=== PATIENT | female | born 1980 | race African-American/Black ===

== ENCOUNTER 2016-12-07 07:39 | Emergency (ER) | payer MEDICARE ==
[~2016-12-07] VITALS: Ht 172.7 cm; Wt 127.6 kg
[~2016-12-07 07:39] MED LIST: ABAC1TAB3 PO; MEDR4PAK3 PO; TYLE3 PO; ZITH250T PO
[2016-12-07 07:56] VITALS: BP 135/93; PULSE 82; RESP 18; TEMP 98.3; O2SAT 96
[2016-12-07] MEDS ORDERED: ABAC1TAB3 PO (08:25)
[2016-12-07] MEDS ORDERED: LEVA500T PO (08:27)
--- NOTE | 2016-12-07 08:27 | PD ---
HPI . Sinus congestion Chief Complaint: Cold / Flu Symptoms Time Seen by Provider: 08:13 Travel History International Travel<30 days: No Contact w/Intl Traveler<30days: No History of Present Illness HPI Patient presents with about a 3 day history of sinus congestion. She has been treating it at home with Demetra and Michaelle. The complicating factor with this patient is that she is HIV positive. She denies any known fever. Her sinus drainage has been purulent. 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 Dvce: No Musculoskeletal: Yes Neurologic: Yes Psychiatric: Yes Respiratory: Yes (occ bronchitis) Immunizations Current: Yes PNEUMOCCOCAL Vaccine (Year): 2010 Menopausal: No : 2 Para: 2 Past Surgical History Abdominal Surgery: Yes (BIOPSY OF LYMPH NODES- PEG TUBE PLACEMENT) Section: Yes (X 2) Cholecystectomy: No Gynecologic Surgery: Yes ((2) C-Sections) Other Surgery: Yes (lymph nodes biopsy in abd) Social History Alcohol Use: No Tobacco Use: No Substance Use: No Allergies-Medications (Allergen,Severity, Reaction): Coded Allergies: Albuterol (Verified Allergy, Severe, 06/24/15) Bactrim (Verified Allergy, Severe, Shortness of Breath, 06/24/15) Reported Meds & Prescriptions Reported Meds & Active Scripts Active Medrol Dosepak (Methylprednisolone) 4 Mg Shawn 4 Mg PO DIRECTED TAKE DIRECTED Tylenol #3 (Acetaminophen/Codeine Phosphate) Acetaminophen 300/30 Codeine Tab 1 Tab PO Q6H PRN FOR PAIN Zithromax Z-Shawn (Azithromycin) 250 Mg Tab 250 Mg PO DIRECTED 500 MG (2 TABLETS) PO ON DAY 1, THEN 250 MG (1 TABLET) PO ON DAYS 2 TO 5. Reported Triumeq 600-50-300 mg (Dbckqyrv-Shjpmmelkzws-Jjoocgbn) 1 Tab Tab 1 Tab PO DAILY Review of Systems Except as stated in HPI: all other systems reviewed are Neg General / Constitutional: No: Fever, Chills HENT: Positive: Rhinitis, Rhinorrhea, Congestion, Other (purulent sinus drainage) Physical Exam Narrative GENERAL: Healthy-appearing woman in no acute distress. SKIN: Warm and dry. HEAD: Atraumatic. Normocephalic. Tenderness to percussion over the maxillary sinuses. EYES: Pupils equal and round. ENT: No nasal bleeding or discharge. Mucous membranes pink and moist. No edema or erythema of the nasal mucosa. Oropharynx is clear. NECK: Trachea midline. Neck is supple without cervical lymphadenopathy. CARDIOVASCULAR: Regular rate and rhythm. Heart sounds are normal. RESPIRATORY: No accessory muscle use. Lungs are clear with full air movement throughout. GASTROINTESTINAL: Abdomen soft, non-tender, nondistended. MUSCULOSKELETAL: No obvious deformities. No edema. NEUROLOGICAL: Awake and alert. No obvious cranial nerve deficits. Motor grossly within normal limits. Normal speech. PSYCHIATRIC: Appropriate mood and affect; insight and judgment normal. Data Data Last Documented VS Vital Signs Date Time Temp Pulse Resp B/P Pulse Ox O2 Delivery O2 Flow Rate FiO2 12/07/16 07:56 98.3 82 18 135/93 96 Room Air MDM Medical Decision Making Medical Screen Exam Complete: Yes Emergency Medical Condition: Yes Differential Diagnosis Differential diagnosis includes but is not limited to influenza, upper respiratory infection, bronchitis, pneumonia Narrative Course Patient presents with symptoms compatible with sinusitis. Because of her history of HIV/AIDS, I queried UpToDate which recommends treatment with an antibiotic to cover pseudomonas. Diagnosis Primary Impression: Sinusitis Qualified Code: J01.01 - Acute recurrent maxillary sinusitis Additional Impression: HIV (human immunodeficiency virus infection) Patient Instructions: General Instructions, Sinusitis (ED) Additional Instructions: I recommend the use of a Neti Pot. You may use a nasal spray such as Afrin for up to 3 days as needed for nasal congestion. You may take an pahd-qmb-iwlmnhs antihistamine such as Zyrtec, Jordyn or Claritin as needed for runny secretions. You may take pseudoephedrine as needed for congestion. You will need to sign for this at the pharmacy. You may take plain Mucinex, 1200 mg twice a day as needed for thick secretions. You may take a cough syrup such as Delsym as needed for cough. Med/Other Pt SpecificInfo: Prescription(s) given Scripts Levofloxacin (Levaquin)500 Mg Cyu441 Mg PO DAILY #10 TAB Ref 0 Prov:Tigist Powers MD 12/07/16 Disposition: 01 DISCHARGE HOME Condition: Stable Tigist Powers MD Dec 07, 2016 08:27
== END 2016-12-07 09:35 | disposition home or self-care (01) ==
LOC: PHEFT 07:39
DX: J01.01 Acute recurrent maxillary sinusitis (principal); Z21 Asymptomatic human immunodeficiency virus [HIV] infection status; Z86.2 Personal history of diseases of the blood and blood-forming organs and certain disorders involving the immune mechanism; Z86.59 Personal history of other mental and behavioral disorders; Z86.79 Personal history of other diseases of the circulatory system; Z87.19 Personal history of other diseases of the digestive system; Z87.39 Personal history of other diseases of the musculoskeletal system and connective tissue; Z86.69 Personal history of other diseases of the nervous system and sense organs; Z87.09 Personal history of other diseases of the respiratory system
CPT/HCPCS: 99283

== ENCOUNTER → 2017-01-03 | Outpatient (CLI) | payer MEDICARE ==
[~2017-01-03] MED LIST changes: +LEVA500T PO; -MEDR4PAK3 PO; -TYLE3 PO; -ZITH250T PO
[2017-01-03 12:11] LABS: HEMATOCRIT 33.6 % (35.0-46.0); MEAN CELL VOLUME 83.4 FL (80.0-100.0); MEAN CORPUSCULAR HGB CONC 34.7 % (32.0-36.0); PLATELET COUNT 177 TH/MM3 (150-450); RED BLOOD COUNT 4.03 MIL/MM3 (4.00-5.30); RED CELL DISTRIBUTION WIDTH 13.3 % (11.6-17.2); REVIEW FLAG FINAL
[2017-01-05 03:51] LABS: CD4/CD8 RATIO 0.2 (0.86-5.00)
[2017-01-06 03:49] LABS: HIV RNA LOG COPIES 4.72 (())
== END ==
LOC: CLAB 11:45
PROVIDERS: ATTEND Specialist
DX: B20 Human immunodeficiency virus [HIV] disease (principal)
CPT/HCPCS: 36415; 85027; 86355; 86357; 86359; 86360; 87536

== ENCOUNTER → 2017-03-16 | Outpatient (CLI) | payer MEDICARE ==
[2017-03-16 16:08] LABS: HEMATOCRIT 36.3 % (35.0-46.0); MEAN CELL VOLUME 85.9 FL (80.0-100.0); MEAN CORPUSCULAR HEMOGLOBIN 29.8 PG (27.0-34.0); MEAN CORPUSCULAR HGB CONC 34.7 % (32.0-36.0); PLATELET COUNT 219 TH/MM3 (150-450); RED BLOOD COUNT 4.23 MIL/MM3 (4.00-5.30); RED CELL DISTRIBUTION WIDTH 14.6 % (11.6-17.2); REVIEW FLAG FINAL; WHITE BLOOD COUNT 5.2 TH/MM3 (4.0-11.0)
[2017-03-16 16:35] LABS: ANION GAP 5 MEQ/L (5-15); AST (GOT) 19 U/L (15-37); BICARBONATE 27.8 MEQ/L (21.0-32.0); BLOOD UREA NITROGEN 10 MG/DL (7-18); CHLORIDE 105 MEQ/L (98-107); GLOMERULAR FILTRATION RATE 60 ML/MIN (>89); GLUCOSE,FASTING 97 MG/DL (74-99); POTASSIUM 3.7 MEQ/L (3.5-5.1); SODIUM (NA) 138 MEQ/L (136-145)
[2017-03-16 16:36] LABS: ALT (GPT) 19 U/L (10-53)
[2017-03-16 16:38] LABS: ALKALINE PHOSPHATASE 67 U/L (45-117); TOTAL BILIRUBIN ADULT 0.5 MG/DL (0.2-1.0)
[2017-03-18 23:51] LABS: CD4/CD8 RATIO 0.3 (0.86-5.00)
[2017-03-19 23:50] LABS: HIV RNA COPIES LESS THAN 20.0 (()); HIV RNA LOG COPIES LESS THAN 1.30 (())
== END ==
LOC: CLAB 15:00
PROVIDERS: ATTEND Specialist
DX: B20 Human immunodeficiency virus [HIV] disease (principal)
CPT/HCPCS: 36415; 80053; 85027; 86355; 86357; 86359; 86360; 87536

== ENCOUNTER 2017-06-18 01:19 | Emergency (ER) | payer MEDICARE ==
[~2017-06-18] VITALS: Ht 170.2 cm; Wt 139.2 kg
[2017-06-18 01:25] VITALS: BP 135/73; PULSE 91; RESP 12; TEMP 98.3; O2SAT 99
[2017-06-18] MEDS ORDERED: PERC7.5T13 PO (02:08)
[2017-06-18] MEDS ORDERED: AMOX875T PO (02:08)
--- NOTE | 2017-06-18 02:08 | PD ---
HPI Chief Complaint: Oral / Dental Pain or Problem Time Seen by Provider: 01:57 Travel History International Travel<30 days: No Contact w/Intl Traveler<30days: No Traveled to known affect area: No History of Present Illness HPI The patient is a 37-year-old female that has dental pain in teeth #29, 30, 31 and 32. She has no appointment with a dentist yet but states she will get one. She is noted this pain getting worse in the last 24 hours. She knows she has dental problems chronically. She has never seen a dentist about this. She denies any fever. She is HIV positive but her T4 count is excellent. 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 Dvce: No Musculoskeletal: Yes Neurologic: Yes Psychiatric: Yes Respiratory: Yes (occ bronchitis) Immunizations Current: Yes PNEUMOCCOCAL Vaccine (Year): 2010 ?: Not LMP: 06/08/17 Menopausal: No : 2 Para: 2 Past Surgical History Abdominal Surgery: Yes (BIOPSY OF LYMPH NODES- PEG TUBE PLACEMENT) Section: Yes (X 2) Cholecystectomy: No Gynecologic Surgery: Yes ((2) C-Sections) Other Surgery: Yes (lymph nodes biopsy in abd) Social History Alcohol Use: No Tobacco Use: Yes Substance Use: No Allergies-Medications (Allergen,Severity, Reaction): Coded Allergies: albuterol (Unverified Allergy, Severe, 06/18/17) sulfamethoxazole (Unverified Allergy, Severe, Shortness of Breath, 06/18/17) trimethoprim (Unverified Allergy, Severe, Shortness of Breath, 06/18/17) Reported Meds & Prescriptions Reported Meds & Active Scripts Active Reported Triumeq (Tixfprid-Snmddblfbpgz-Khgjgvdgzd) 600-50-300 Mg Tab 1 Tab PO DAILY Hazardous agent; use appropriate precautions for handling & disposal. Review of Systems Except as stated in HPI: all other systems reviewed are Neg Physical Exam Narrative GENERAL: Well-nourished, obese patient in moderate apparent distress with her dental pain. Her vital signs are normal. SKIN: Focused skin assessment warm/dry. HEAD: Normocephalic. EYES: No scleral icterus. No injection or drainage. NECK: Supple, trachea midline. No JVD or lymphadenopathy. CARDIOVASCULAR: Regular rate and rhythm without murmurs, gallops, or rubs. RESPIRATORY: Breath sounds equal bilaterally. No accessory muscle use. GASTROINTESTINAL: Abdomen soft, non-tender, nondistended. MUSCULOSKELETAL: No cyanosis, or edema. BACK: Nontender without obvious deformity. No CVA tenderness. DENTAL: Teeth #29, 30, 31 and 32 are partly broken down and there is calm swelling around this area and exquisitely tender to the touch. No drainable abscesses are noted however. No malocclusion. Data Data Last Documented VS Vital Signs Date Time Temp Pulse Resp B/P (MAP) Pulse Ox O2 Delivery O2 Flow Rate FiO2 06/18/17 01:25 98.3 91 12 135/73 (93) 99 MDM Medical Decision Making Medical Screen Exam Complete: Yes Emergency Medical Condition: Yes Medical Record Reviewed: Yes Differential Diagnosis Dental infection, drainable dental abscess, gingivitis, drug seeking behavior- highly unlikely, Jigar's angina-highly unlikely Narrative Course The patient has a dental infection with gingivitis. She needs antibiotics and she needs a dentist. She will be given Percocet for pain. Diagnosis Primary Impression: Gingivitis Additional Impression: Chronic dental infection Additional Instructions: As we discussed, follow-up with a dentist. Antibiotics and pain pills are not going to be enough for you. Med/Other Pt SpecificInfo: Prescription(s) given Scripts Oxycodone-Acetaminophen (Percocet) 7.5-325 mg Tab 1 TAB PO Q4H Y for PAIN, #28 TAB 0 Refills Prov: Kenan Doty MD 06/18/17 Amoxicillin (Amoxicillin) 875 Mg Tab 875 MG PO BID for Infection for 14 Days, TAB 0 Refills Prov: Kenan Doty MD 06/18/17 Disposition: 01 DISCHARGE HOME Condition: Stable Kenan Doty MD Jun 18, 2017 02:08
[2017-06-18] MEDS ORDERED: AMOXICILLIN 875 MG TAB PO ONE (02:15)
[2017-06-18] MEDS ORDERED: oxyCODONE/ACETAMINOPHEN 10 MG/325 MG TAB PO ONE (02:30)
[2017-06-18 03:06] VITALS: BP 128/72
== END 2017-06-18 03:08 | disposition home or self-care (01) ==
LOC: PHED 01:19
DX: K05.10 Chronic gingivitis, plaque induced (principal); K04.7 Periapical abscess without sinus; Z72.0 Tobacco use; Z21 Asymptomatic human immunodeficiency virus [HIV] infection status; Z86.2 Personal history of diseases of the blood and blood-forming organs and certain disorders involving the immune mechanism; Z86.59 Personal history of other mental and behavioral disorders; Z86.79 Personal history of other diseases of the circulatory system; Z87.19 Personal history of other diseases of the digestive system; Z87.39 Personal history of other diseases of the musculoskeletal system and connective tissue; Z86.69 Personal history of other diseases of the nervous system and sense organs
CPT/HCPCS: 99284

== ENCOUNTER 2017-06-23 01:29 | Emergency (ER) | payer MEDICARE ==
[~2017-06-23] VITALS: Ht 170.2 cm; Wt 139.8 kg
[~2017-06-23 01:29] MED LIST changes: +AMOX875T PO; -LEVA500T PO; +PERC7.5T13 PO
[2017-06-23 01:40] VITALS: BP 140/96; PULSE 82; RESP 14; TEMP 98.1; O2SAT 99
[2017-06-23] MEDS ORDERED: FLUT1SPR5 EACH NARE (01:56)
[2017-06-23] MEDS ORDERED: ZITHTAB PO (01:56)
--- NOTE | 2017-06-23 01:56 | PD ---
HPI Chief Complaint: sinus congestion Time Seen by Provider: 01:37 Travel History International Travel<30 days: No Contact w/Intl Traveler<30days: No Traveled to known affect area: No History of Present Illness HPI 37-year-old female complains of nasal congestion, postnasal drip, facial pain and facial pressure. Patient states that the symptoms started several days ago and got worse today. Patient denies any headache. Patient denies any visual change. Patient denies earache or sore throat. Patient denies any coughing. Patient denies any chest pain or shortness of breath. Patient denies abdominal pain. Patient denies any nausea vomiting diarrhea. Patient has history of HIV positive. Patient states that her CD4 counts in the 280 range. Patient states that her viral load is low. 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 Dvce: No Musculoskeletal: Yes Neurologic: Yes Psychiatric: Yes Respiratory: Yes (occ bronchitis) Immunizations Current: Yes PNEUMOCCOCAL Vaccine (Year): 2010 Menopausal: No : 2 Para: 2 Past Surgical History Abdominal Surgery: Yes (BIOPSY OF LYMPH NODES- PEG TUBE PLACEMENT) Section: Yes (X 2) Cholecystectomy: No Gynecologic Surgery: Yes ((2) C-Sections) Other Surgery: Yes (lymph nodes biopsy in abd) Social History Alcohol Use: No Tobacco Use: Yes (2 CIGARETTES PER DAY) Substance Use: No Allergies-Medications (Allergen,Severity, Reaction): Coded Allergies: albuterol (Unverified Allergy, Severe, 06/18/17) sulfamethoxazole (Unverified Allergy, Severe, Shortness of Breath, 06/18/17) trimethoprim (Unverified Allergy, Severe, Shortness of Breath, 06/18/17) Reported Meds & Prescriptions Reported Meds & Active Scripts Active Percocet (Oxycodone-Acetaminophen) 7.5-325 mg Tab 1 Tab PO Q4H PRN Amoxicillin 875 Mg Tab 875 Mg PO BID 14 Days Reported Triumeq (Idzftjsv-Qbnrrjajkbkh-Yiyywpqcdp) 600-50-300 Mg Tab 1 Tab PO DAILY Hazardous agent; use appropriate precautions for handling & disposal. Review of Systems General / Constitutional: No: Fever Eyes: No: Visual changes HENT: Positive: Congestion, No: Headaches Cardiovascular: No: Chest Pain or Discomfort Respiratory: No: Shortness of Breath Gastrointestinal: No: Abdominal Pain Genitourinary: No: Dysuria Musculoskeletal: No: Pain Skin: No Rash Neurologic: No: Weakness Psychiatric: No: Depression Endocrine: No: Polydipsia Hematologic/Lymphatic: No: Easy Bruising Physical Exam Narrative GENERAL: Well-nourished, well-developed patient. SKIN: Focused skin assessment warm/dry. HEAD: Normocephalic. EYES: No scleral icterus. No injection or drainage. Throat: Nonerythematous. Nasal mucosa erythematous and boggy. Patient has tenderness on palpation maxillary sinus area. NECK: Supple, trachea midline. No JVD or lymphadenopathy. CARDIOVASCULAR: Regular rate and rhythm without murmurs, gallops, or rubs. RESPIRATORY: Breath sounds equal bilaterally. No accessory muscle use. GASTROINTESTINAL: Abdomen soft, non-tender, nondistended. MUSCULOSKELETAL: No cyanosis, or edema. BACK: Nontender without obvious deformity. No CVA tenderness. Neurologic exam normal. Data Data Last Documented VS Vital Signs Date Time Temp Pulse Resp B/P (MAP) Pulse Ox O2 Delivery O2 Flow Rate FiO2 06/23/17 01:40 98.1 82 14 140/96 (111) 99 Orders Orders Azithromycin (Zithromax) (06/23/17 02:00) [facility] Medical Decision Making Medical Screen Exam Complete: Yes Emergency Medical Condition: Yes Differential Diagnosis Differential diagnosis including sinusitis, URI, pharyngitis, bronchitis, pneumonia. Narrative Course 37-year-old female with nasal congestion and sinus pressure and facial pain. History of HIV positive. Zithromax 500 mg by mouth given. Diagnosis Primary Impression: Sinusitis Qualified Codes: J01.01 - Acute recurrent maxillary sinusitis Additional Instructions: Z-Shawn as directed. Pwsh-rxm-qbpxcxr Flonase nasal spray as directed. Follow- up with personal physician. Return if worse. Med/Other Pt SpecificInfo: Prescription(s) given Scripts Fluticasone Nasal [place] (Flonase Nasal [place]) 50 Mcg/Act [place] 100 MCG EACH NARE BID for Allergies, #1 BOTTLE 0 Refills Prov: Rene Menjivar MD 06/23/17 Azithromycin (Zithromax Z-Shawn) 250 Mg Dspk 250 MG PO DIRECTED for Infection, #1 DSPK 0 Refills 500 MG (2 tabs) day 1, then 1 tab days 2-5. Prov: Rene Menjivar MD 06/23/17 Disposition: 01 DISCHARGE HOME Condition: Stable Rene Menjivar MD Jun 23, 2017 01:56
[2017-06-23] MEDS ORDERED: AZITHROMYCIN 250 MG TAB PO ONE (02:00)
== END 2017-06-23 02:03 | disposition home or self-care (01) ==
LOC: PHED 01:29
DX: J01.01 Acute recurrent maxillary sinusitis (principal); F17.210 Nicotine dependence, cigarettes, uncomplicated; D64.9 Anemia, unspecified; Z21 Asymptomatic human immunodeficiency virus [HIV] infection status
CPT/HCPCS: 99283

== ENCOUNTER → 2017-12-26 | Outpatient (CLI) | payer MEDICARE ==
[~2017-12-26] MED LIST changes: +FLUT1SPR5 EACH NARE; +ZITHTAB PO
[2017-12-26 11:24] LABS: HEMATOCRIT 35.8 % (35.0-46.0); HEMOGLOBIN 12.4 GM/DL (11.6-15.3); MEAN CORPUSCULAR HEMOGLOBIN 29.2 PG (27.0-34.0); MEAN CORPUSCULAR HGB CONC 34.7 % (32.0-36.0); MEAN PLATELET VOLUME 9.1 FL (7.0-11.0); PLATELET COUNT 155 TH/MM3 (150-450); RED BLOOD COUNT 4.26 MIL/MM3 (4.00-5.30); RED CELL DISTRIBUTION WIDTH 13.9 % (11.6-17.2)
[2017-12-26 11:45] LABS: ALBUMIN 3.5 GM/DL (3.4-5.0); AST (GOT) 22 U/L (15-37); BICARBONATE 23.1 MEQ/L (21.0-32.0); BLOOD UREA NITROGEN 11 MG/DL (7-18); CALCIUM 9.4 MG/DL (8.5-10.1); CHLORIDE 106 MEQ/L (98-107); CREATININE 1.09 MG/DL (0.50-1.00); GLOMERULAR FILTRATION RATE 69 ML/MIN (>89); GLUCOSE,FASTING 101 MG/DL (74-99); SODIUM (NA) 138 MEQ/L (136-145)
[2017-12-26 11:46] LABS: ALT (GPT) 17 U/L (10-53)
[2017-12-26 11:48] LABS: ALKALINE PHOSPHATASE 78 U/L (45-117); TOTAL BILIRUBIN ADULT 0.6 MG/DL (0.2-1.0); TOTAL PROTEIN 9.1 GM/DL (6.4-8.2)
[2017-12-27 23:54] LABS: CD3-/CD16+CD56+ PERCENT 11 % (4-25); CD3-CD16+CD56+ (ABSOLUTE) 115 (70-760); LYMPHOCYTES, ABSOLUTE 1093 (850-3900)
== END ==
LOC: CLAB 10:44
PROVIDERS: ATTEND Specialist
DX: B20 Human immunodeficiency virus [HIV] disease (principal)
CPT/HCPCS: 36415; 80053; 82105; 85027; 86355; 86357; 86359; 86360; 87536; 87901

== ENCOUNTER 2018-01-04 11:01 | Emergency (ER) | payer MEDICARE ==
[~2018-01-04] VITALS: Ht 172.7 cm; Wt 135.2 kg
[2018-01-04 11:06] VITALS: BP 132/80; PULSE 79; RESP 16; TEMP 98.8; O2SAT 96
--- NOTE | 2018-01-04 11:55 | PD ---
HPI Chief Complaint: Skin Problem Time Seen by Provider: 11:13 Travel History International Travel<30 days: No Contact w/Intl Traveler<30days: No Traveled to known affect area: No History of Present Illness HPI This is a 37-year-old female with history of HIV, not currently on antivirals, last CD4 count 85 1 week ago. She is here for evaluation of a wound to her abdomen for the last 3 weeks. She reports the area arose spontaneously and has steadily increased in size producing a malodorous discharge. Denies fever, but reported chills. No abdominal pain. No nausea vomiting. Severity is moderate. No aggravating or alleviating factors. 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 Dvce: No Musculoskeletal: Yes Neurologic: Yes Psychiatric: Yes Respiratory: Yes (occ bronchitis) Immunizations Current: Yes PNEUMOCCOCAL Vaccine (Year): 2010 ?: Not LMP: 12/21/17 Menopausal: No : 2 Para: 2 Past Surgical History Abdominal Surgery: Yes (BIOPSY OF LYMPH NODES- PEG TUBE PLACEMENT) Section: Yes (X 2) Cholecystectomy: No Gynecologic Surgery: Yes ((2) C-Sections) Other Surgery: Yes (lymph nodes biopsy in abd) Social History Alcohol Use: No Tobacco Use: Yes (2 CIGARETTES PER DAY) Substance Use: No Allergies-Medications (Allergen,Severity, Reaction): Coded Allergies: albuterol (Verified Allergy, Severe, 01/04/18) sulfamethoxazole (Verified Allergy, Severe, Shortness of Breath, 01/04/18) trimethoprim (Verified Allergy, Severe, Shortness of Breath, 01/04/18) Reported Meds & Prescriptions Reported Meds & Active Scripts Active Flonase Nasal [place] (Fluticasone Nasal [place]) 50 Mcg/Act [place] 100 Mcg EACH NARE BID Zithromax Z-Shawn (Azithromycin) 250 Mg Dspk 250 Mg PO DIRECTED 500 MG (2 tabs) day 1, then 1 tab days 2-5. Percocet (Oxycodone-Acetaminophen) 7.5-325 mg Tab 1 Tab PO Q4H PRN Amoxicillin 875 Mg Tab 875 Mg PO BID 14 Days Reported Triumeq (Uciotnwj-Cpvxzzcnnuqy-Cwpreovsmg) 600-50-300 Mg Tab 1 Tab PO DAILY Hazardous agent; use appropriate precautions for handling & disposal. Review of Systems Except as stated in HPI: all other systems reviewed are Neg General / Constitutional: No: Fever Eyes: No: Visual changes HENT: No: Headaches Cardiovascular: No: Chest Pain or Discomfort Respiratory: No: Shortness of Breath Gastrointestinal: No: Abdominal Pain Genitourinary: No: Dysuria Musculoskeletal: No: Pain Skin: Positive Lesions Neurologic: No: Weakness Psychiatric: No: Depression Physical Exam Narrative GENERAL: Alert and nontoxic-appearing 37-year-old female. SKIN: Approximately 6 cm diameter shallow ulcer to the abdomen in the location of the skin fold. Wound has malodorous yellow discharge. No surrounding induration or fluctuance. HEAD: Normocephalic. EYES: No injection or drainage. Ears/nose/throat: Mucous membranes are moist. No oral lesions. NECK: Supple, trachea midline. No lymphadenopathy. CARDIOVASCULAR: Regular rate and rhythm RESPIRATORY: Breath sounds equal bilaterally. No accessory muscle use. GASTROINTESTINAL: Abdomen soft, non-tender, nondistended. MUSCULOSKELETAL: No cyanosis, or edema. BACK: Nontender without obvious deformity. No CVA tenderness. Data Data Last Documented VS Vital Signs Date Time Temp Pulse Resp B/P (MAP) Pulse Ox O2 Delivery O2 Flow Rate FiO2 01/04/18 11:06 98.8 79 16 132/80 (97) 96 Orders Orders Basic Metabolic Panel (Bmp) (01/04/18 11:31) Complete Blood Count With Diff (01/04/18 11:31) Blood Culture (01/04/18 11:31) Wound Culture And Gram Stain (01/04/18 11:31) Iv Access Insert/Monitor (01/04/18 11:31) Lactic Acid Sepsis Protocol (01/04/18 11:31) Ed Urine Pregnancytest Poc (01/04/18 12:40) Piperacil-Tazo 4.5 Gm Premix (Zosyn 4.5 (01/04/18 12:43) Vancomycin Inj (Vancomycin Inj) (01/04/18 12:43) Admit Order (Ed Use Only) (01/04/18 13:11) Labs Laboratory Tests Test 01/04/18 11:46 01/04/18 11:52 White Blood Count 4.0 TH/MM3 Red Blood Count 4.71 MIL/MM3 Hemoglobin 13.3 GM/DL Hematocrit 39.9 % Mean Corpuscular Volume 84.8 FL Mean Corpuscular Hemoglobin 28.3 PG Mean Corpuscular Hemoglobin Concent 33.4 % Red Cell Distribution Width 13.6 % Platelet Count 191 TH/MM3 Mean Platelet Volume 9.3 FL Neutrophils (%) (Auto) 54.5 % Lymphocytes (%) (Auto) 32.8 % Monocytes (%) (Auto) 12.0 % Eosinophils (%) (Auto) 0.5 % Basophils (%) (Auto) 0.2 % Neutrophils # (Auto) 2.2 TH/MM3 Lymphocytes # (Auto) 1.3 TH/MM3 Monocytes # (Auto) 0.5 TH/MM3 Eosinophils # (Auto) 0.0 TH/MM3 Basophils # (Auto) 0.0 TH/MM3 CBC Comment DIFF FINAL Differential Comment Blood Urea Nitrogen 18 MG/DL Creatinine 1.10 MG/DL Random Glucose 96 MG/DL Calcium Level 9.4 MG/DL Sodium Level 134 MEQ/L Potassium Level 3.9 MEQ/L Chloride Level 103 MEQ/L Carbon Dioxide Level 25.1 MEQ/L Anion Gap 6 MEQ/L Estimat Glomerular Filtration Rate 68 ML/MIN Lactic Acid Level 1.0 mmol/L [facility] Medical Decision Making Medical Screen Exam Complete: Yes Emergency Medical Condition: Yes Interpretation(s) Afebrile, no tachycardia. CBC: WBC 4 BMP: Creatinine 1.1 LACTIC: 1 Urine negative Differential Diagnosis Infected wound ulcer, opportunistic infection, cellulitis Narrative Course 37-year-old female with infected wound ulcer to her abdomen 3 weeks. History of HIV with a CD4 count of 85. She has an active infection wound infection. Spoke with Dr. Sujatha Jarvis [facility]. Patient will be admitted to their services. Diagnosis Primary Impression: AIDS (acquired immunodeficiency syndrome), CD4 <=200 Additional Impression: Wound infection Admitting Information Admitting Physician Requests: Admit Bijal Tran Jan 04, 2018 11:55
[2018-01-04 12:14] LABS: AUTOMATED NEUTROPHIL # 2.2 TH/MM3 (1.8-7.7); BASOPHIL % 0.2 % (0.0-2.0); EOSINOPHIL % 0.5 % (0.0-4.0); HEMATOCRIT 39.9 % (35.0-46.0); HEMOGLOBIN 13.3 GM/DL (11.6-15.3); LYMPH % 32.8 % (9.0-44.0); LYMPHOCYTE # 1.3 TH/MM3 (1.0-4.8); MEAN CELL VOLUME 84.8 FL (80.0-100.0); MEAN CORPUSCULAR HEMOGLOBIN 28.3 PG (27.0-34.0); MEAN CORPUSCULAR HGB CONC 33.4 % (32.0-36.0); MEAN PLATELET VOLUME 9.3 FL (7.0-11.0); MONOCYTE # 0.5 TH/MM3 (0-0.9); NEUT % 54.5 % (16.0-70.0); PLATELET COUNT 191 TH/MM3 (150-450); RED BLOOD COUNT 4.71 MIL/MM3 (4.00-5.30); RED CELL DISTRIBUTION WIDTH 13.6 % (11.6-17.2)
[2018-01-04 12:21] LABS: BICARBONATE 25.1 MEQ/L (21.0-32.0); CALCIUM 9.4 MG/DL (8.5-10.1)
[2018-01-04 12:25] LABS: CREATININE 1.1 MG/DL (0.50-1.00)
[2018-01-04] MEDS ORDERED: PIPERACIL-TAZO 4.5 GM PREMIX 100 ML IV STA (12:43)
[2018-01-04] MEDS ORDERED: VANCOMYCIN INJ 1,000 MG in SODIUM CHLOR 0.9% 250 ML INJ 250 ML IV STA (12:43)
--- NOTE | 2018-01-04 13:25 | PD ---
Data Data Last Documented VS Vital Signs Date Time Temp Pulse Resp B/P (MAP) Pulse Ox O2 Delivery O2 Flow Rate FiO2 01/04/18 11:06 98.8 79 16 132/80 (97) 96 Orders Orders Basic Metabolic Panel (Bmp) (01/04/18 11:31) Complete Blood Count With Diff (01/04/18 11:31) Blood Culture (01/04/18 11:31) Wound Culture And Gram Stain (01/04/18 11:31) Iv Access Insert/Monitor (01/04/18 11:31) Lactic Acid Sepsis Protocol (01/04/18 11:31) Ed Urine Pregnancytest Poc (01/04/18 12:40) Piperacil-Tazo 4.5 Gm Premix (Zosyn 4.5 (01/04/18 12:43) Vancomycin Inj (Vancomycin Inj) (01/04/18 12:43) Labs Laboratory Tests Test 01/04/18 11:46 01/04/18 11:52 White Blood Count 4.0 TH/MM3 Red Blood Count 4.71 MIL/MM3 Hemoglobin 13.3 GM/DL Hematocrit 39.9 % Mean Corpuscular Volume 84.8 FL Mean Corpuscular Hemoglobin 28.3 PG Mean Corpuscular Hemoglobin Concent 33.4 % Red Cell Distribution Width 13.6 % Platelet Count 191 TH/MM3 Mean Platelet Volume 9.3 FL Neutrophils (%) (Auto) 54.5 % Lymphocytes (%) (Auto) 32.8 % Monocytes (%) (Auto) 12.0 % Eosinophils (%) (Auto) 0.5 % Basophils (%) (Auto) 0.2 % Neutrophils # (Auto) 2.2 TH/MM3 Lymphocytes # (Auto) 1.3 TH/MM3 Monocytes # (Auto) 0.5 TH/MM3 Eosinophils # (Auto) 0.0 TH/MM3 Basophils # (Auto) 0.0 TH/MM3 CBC Comment DIFF FINAL Differential Comment Blood Urea Nitrogen 18 MG/DL Creatinine 1.10 MG/DL Random Glucose 96 MG/DL Calcium Level 9.4 MG/DL Sodium Level 134 MEQ/L Potassium Level 3.9 MEQ/L Chloride Level 103 MEQ/L Carbon Dioxide Level 25.1 MEQ/L Anion Gap 6 MEQ/L Estimat Glomerular Filtration Rate 68 ML/MIN Lactic Acid Level 1.0 mmol/L [facility] Medical Record Reviewed: Yes Supervised Visit with KAVYA: Yes Narrative Course I, Dr. Garcia, have reviewed the advance practice practitioner's documentation and am in agreement, met with the patient face to face, made the diagnosis, and the medical decision making was done by me. *My assessment and Findings: CBC & BMP Diagram 01/04/18 11:46 Calcium Level 9.4 The patient's HIV with a CD4 count of about 85 making her AIDS up diagnosis. There is a infectious process about the umbilicus. Case was endorsed or hospitalist to elected to discharge the patient. On my exam there is no induration or tenderness or warmth or significant erythema about the umbilicus however there is foul-smelling odor. He has several water/hygienic techniques discussed. The patient expressed some concern having a preference to stay for IV antibiotics. In any case please refer to the hospitalist documentation. All reasonable efforts to meet patient's expectations were afforded. Diagnosis Primary Impression: AIDS (acquired immunodeficiency syndrome), CD4 <=200 Additional Impression: Wound infection Referrals: Dyan Ibrahim MD call for appointment Med/Other Pt SpecificInfo: Prescription(s) given Scripts Clindamycin (Clindamycin) 150 Mg Cap 450 MG PO Q8HR for Infection for 7 Days, CAP 0 Refills Prov: Neeraj Garcia MD 01/04/18 Clindamycin (Clindamycin) 300 Mg Cap 600 MG PO Q8H for Infection, #30 CAP 0 Refills Prov: Pennie Jarvis MD 01/04/18 Ciprofloxacin (Ciprofloxacin) 500 Mg Tab 500 MG PO BID for Infection, #20 TAB 0 Refills Prov: Pennie Jarvis MD 01/04/18 Disposition: 01 DISCHARGE HOME Condition: Stable Neeraj Garcia MD Jan 04, 2018 13:25
[2018-01-04] MEDS ORDERED: CLIN300C5 PO (13:26)
[2018-01-04] MEDS ORDERED: CIPR500T2 PO (13:26)
--- NOTE | 2018-01-04 13:27 | HHI.DCPOC ---
Discharge Care Plan Diagnosis: (1) Wound infection Goals to Promote Your Health * To prevent worsening of your condition and complications * To maintain your health at the optimal level Directions to Meet Your Goals Take your medications as prescribed Follow your dietary instruction Follow activity as directed Keep your appointments as scheduled Take your immunizations and boosters as scheduled If your symptoms worsen call your PCP, if no PCP go to Urgent Care Center or Emergency Room Smoking is Dangerous to Your Health. Avoid second hand smoke Call the 24-hour hour crisis hotline for domestic abuse at WOUND CARE: CLEAN AREA TWICE DAILY WITH WOUND CLEANSER AND COVER WITH DRY DRESSING Pennie Jarvis MD Jan 04, 2018 13:27
[2018-01-04] MEDS ORDERED: CLIN150C14 PO (13:29)
[2018-01-04] MEDS ORDERED: CLINDAMYCIN 150 MG CAP PO ONE (13:30)
--- NOTE | 2018-01-04 13:32 | PD.CONS ---
[facility] Consult Requested By ER MD Reason for Consult Evaluation of skin lesion Primary Care Physician Dyan Ibrahim MD Diagnoses: History of Present Illness This patient is a 37-year-old female with a history of HIV nonadherent with treatment plans. She comes to the emergency room after 2 weeks of a skin lesion. There was a bullous lesion in the middle of her pannus. She has been exercising quite a bit and the bolus skin came off and there was left and ulcerated lesion underneath the bullous lesion. Patient says she has been trying to keep it clean but she left it open and was sweating while exercising and then she noted it smelled funny yesterday so she came in the hospital. There is no fever or chills. Patient has not had any nausea or vomiting or toxic symptoms. Patient is alert and oriented in bed sitting on her phone and has received 1 dose of vancomycin in the emergency room. At this point I do not feel that the patient has failed any outpatient therapy and this is most appropriate given her clinical status. Patient will be discharged from the emergency room to follow-up with infectious disease team. She is encouraged to continue with HIV therapy. This is discussed with the ER MD Review of Systems Constitutional: DENIES: Diaphoretic episodes, Fatigue, Fever, Weight gain, Weight loss, Chills, Dizziness, Change in appetite, Night Sweats Endocrine: DENIES: Abnorml menstrual pattern, Heat/cold intolerance, Polydipsia , Polyuria, Polyphagia Eyes: DENIES: Blurred vision, Diplopia, Eye inflammation, Eye pain, Vision loss , Photosensitivity, Double Vision Respiratory: DENIES: Apneas, Cough, Snoring, Wheezing, Hemoptysis, Sputum production, Shortness of breath Cardiovascular: DENIES: Chest pain, Palpitations, Syncope, Dyspnea on Exertion , PND, Lower Extremity Edema, Orthopnea, Claudication Genitourinary: DENIES: Abnormal vaginal bleeding, Dysmenorrhea, Dyspareunia, Sexual dysfunction, Urinary frequency, Urinary incontinence, Urgency, Hematuria , Dysuria, Nocturia, Vaginal discharge Musculoskeletal: DENIES: Joint pain, Muscle aches, Stiffness, Joint Swelling, Back pain, Neck pain Integumentary: DENIES: Abnormal pigmentation, Pruritus, Rash, Nail changes, Breast masses, Breast skin changes, Nipple discharge Hematologic/lymphatic: DENIES: Bruising, Lymphadenopathy Immunologic/allergic: DENIES: Eczema, Urticaria Neurologic: DENIES: Abnormal gait, Headache, Localized weakness, Paresthesias, Seizures, Speech Problems, Tremor, Poor Balance Except as stated in HPI: all other systems reviewed are Neg Past Family Social History Allergies: Coded Allergies: albuterol (Verified Allergy, Severe, 01/04/18) sulfamethoxazole (Verified Allergy, Severe, Shortness of Breath, 01/04/18) trimethoprim (Verified Allergy, Severe, Shortness of Breath, 01/04/18) Past Medical History HIV Past Surgical History Reported Medications Reviewed in the EMR, nonadherent with medical treatment for HIV Active Ordered Medications Reviewed in the EMR Family History Mother is alive and well, father from colon cancer Social History Patient smokes daily, lives with her children, no recent travel, not employed and not in school Physical Exam Vital Signs Vital Signs Date Time Temp Pulse Resp B/P (MAP) Pulse Ox O2 Delivery O2 Flow Rate FiO2 01/04/18 11:06 98.8 79 16 132/80 (97) 96 Physical Exam GENERAL: This is a well-nourished, well-developed patient, in no apparent distress. SKIN: Quarter sized abdominal pannus ulcerated area without induration, no rashes, ecchymoses or lesions. Cool and dry. HEAD: Atraumatic. Normocephalic. No temporal or scalp tenderness. EYES: Pupils equal round and reactive. Extraocular motions intact. No scleral icterus. No injection or drainage. ENT: Nose without bleeding, purulent drainage or septal hematoma. Throat without erythema, tonsillar hypertrophy or exudate. Uvula midline. Airway patent. NECK: Trachea midline. No JVD or lymphadenopathy. Supple, nontender, no meningeal signs. CARDIOVASCULAR: Regular rate and rhythm without murmurs, gallops, or rubs. RESPIRATORY: Clear to auscultation. Breath sounds equal bilaterally. No wheezes , rales, or rhonchi. GASTROINTESTINAL: Abdomen soft, non-tender, nondistended. No hepato-splenomegaly , or palpable masses. No guarding. MUSCULOSKELETAL: Extremities without clubbing, cyanosis, or edema. No joint tenderness, effusion, or edema noted. No calf tenderness. Negative Homans sign bilaterally. NEUROLOGICAL: Awake and alert. Cranial nerves II through XII intact. Motor and sensory grossly within normal limits. Five out of 5 muscle strength in all muscle groups. Normal speech. Laboratory Laboratory Tests Test 01/04/18 11:46 01/04/18 11:52 White Blood Count 4.0 Red Blood Count 4.71 Hemoglobin 13.3 Hematocrit 39.9 Mean Corpuscular Volume 84.8 Mean Corpuscular Hemoglobin 28.3 Mean Corpuscular Hemoglobin Concent 33.4 Red Cell Distribution Width 13.6 Platelet Count 191 Mean Platelet Volume 9.3 Neutrophils (%) (Auto) 54.5 Lymphocytes (%) (Auto) 32.8 Monocytes (%) (Auto) 12.0 Eosinophils (%) (Auto) 0.5 Basophils (%) (Auto) 0.2 Neutrophils # (Auto) 2.2 Lymphocytes # (Auto) 1.3 Monocytes # (Auto) 0.5 Eosinophils # (Auto) 0.0 Basophils # (Auto) 0.0 CBC Comment DIFF FINAL Differential Comment Blood Urea Nitrogen 18 Creatinine 1.10 Random Glucose 96 Calcium Level 9.4 Sodium Level 134 Potassium Level 3.9 Chloride Level 103 Carbon Dioxide Level 25.1 Anion Gap 6 Estimat Glomerular Filtration Rate 68 Lactic Acid Level 1.0 Date/Time Source Procedure Growth Status 01/04/18 11:52 Blood Peripheral Aerobic Blood Culture Pending Received 01/04/18 11:52 Blood Peripheral Anaerobic Blood Culture Pending Received 01/04/18 11:55 Wound Abdomen Gram Stain Pending Received 01/04/18 11:55 Wound Abdomen Wound Culture Pending Received Result Diagram: 01/04/18 1146 01/04/18 1146 Assessment and Plan Problem List: (1) Wound infection ICD Code: T14.8XXA - Other injury of unspecified body region, initial encounter ; L08.9 - Local infection of the skin and subcutaneous tissue, unspecified Status: Acute Plan: Although the patient does have HIV/AIDS she is nontoxic at the moment and has never been treated with antibiotics as an outpatient. There is no induration. Patient is instructed on wound care and proper skin care and antibiotics have been provided. Patient will continue these and follow-up with her primary infectious disease doctor. This discussed with the ER MD attending and with patient Assessment and Plan Patient will need to continue with follow-up with infectious disease for management of HIV AIDS Code Status Full code Pennie Jarvis MD Jan 04, 2018 13:32
== END 2018-01-04 14:52 | disposition home or self-care (01) ==
LOC: PHEFT 11:01 → UNDOADMIN 13:13 → PHEDA 13:13
DX: B20 Human immunodeficiency virus [HIV] disease (principal); S31.109A Unspecified open wound of abdominal wall, unspecified quadrant without penetration into peritoneal cavity, initial encounter; L08.9 Local infection of the skin and subcutaneous tissue, unspecified; B95.61 Methicillin susceptible Staphylococcus aureus infection as the cause of diseases classified elsewhere; B96.5 Pseudomonas (aeruginosa) (mallei) (pseudomallei) as the cause of diseases classified elsewhere; B96.1 Klebsiella pneumoniae [K. pneumoniae] as the cause of diseases classified elsewhere; B96.89 Other specified bacterial agents as the cause of diseases classified elsewhere; F32.9 Major depressive disorder, single episode, unspecified; Z72.0 Tobacco use; Z88.2 Allergy status to sulfonamides; Z88.8 Allergy status to other drugs, medicaments and biological substances; Z79.899 Other long term (current) drug therapy
CPT/HCPCS: 80048; 83605; 84703; 85025; 86403; 87040; 87070; 87077; 87185; 87186; 96374; 99285; J3370; J7050; 87205

== ENCOUNTER → 2018-02-16 | Outpatient (CLI) | payer MEDICARE ==
[~2018-02-16] MED LIST changes: +ALUMSUS2 PO; +CIPR500T2 PO; +CLIN150C14 PO; +CLIN300C5 PO; +FAMO1TAB37 PO; +LIDO2SOL11 PO; +ZOFR4TAB3 SL
[2018-02-16 09:07] LABS: HEMATOCRIT 34.9 % (35.0-46.0); HEMOGLOBIN 12.1 GM/DL (11.6-15.3); MEAN CELL VOLUME 85.4 FL (80.0-100.0); MEAN CORPUSCULAR HEMOGLOBIN 29.6 PG (27.0-34.0); MEAN CORPUSCULAR HGB CONC 34.7 % (32.0-36.0); MEAN PLATELET VOLUME 8.8 FL (7.0-11.0); PLATELET COUNT 240 TH/MM3 (150-450); RED BLOOD COUNT 4.09 MIL/MM3 (4.00-5.30); RED CELL DISTRIBUTION WIDTH 14.7 % (11.6-17.2); WHITE BLOOD COUNT 5.4 TH/MM3 (4.0-11.0)
[2018-02-16 09:33] LABS: ALBUMIN 3.1 GM/DL (3.4-5.0); AST (GOT) 20 U/L (15-37); BICARBONATE 23.6 MEQ/L (21.0-32.0); BLOOD UREA NITROGEN 16 MG/DL (7-18); CALCIUM 8.6 MG/DL (8.5-10.1); CHLORIDE 107 MEQ/L (98-107); CREATININE 1.25 MG/DL (0.50-1.00); GLOMERULAR FILTRATION RATE 59 ML/MIN (>89); GLUCOSE,FASTING 103 MG/DL (74-99); SODIUM (NA) 139 MEQ/L (136-145)
[2018-02-16 09:37] LABS: ALKALINE PHOSPHATASE 66 U/L (45-117); ALT (GPT) 16 U/L (10-53); TOTAL BILIRUBIN ADULT 0.4 MG/DL (0.2-1.0); TOTAL PROTEIN 8.1 GM/DL (6.4-8.2)
== END ==
LOC: CLAB 08:26
PROVIDERS: ATTEND Nurse Practitioner Acute Care
DX: B20 Human immunodeficiency virus [HIV] disease (principal)
CPT/HCPCS: 36415; 80053; 85027; 86355; 86357; 86359; 86360; 87536

== ENCOUNTER 2018-02-25 02:12 | Emergency (ER) | payer MEDICARE, MEDICAID ==
[~2018-02-25] VITALS: Ht 170.2 cm; Wt 140.0 kg
[~2018-02-25 02:12] MED LIST changes: -ALUMSUS2 PO; -FAMO1TAB37 PO; -LIDO2SOL11 PO; -ZOFR4TAB3 SL
[2018-02-25 02:18] VITALS: BP 146/87; PULSE 88; RESP 20; TEMP 97.9; O2SAT 99
[2018-02-25 02:27] VITALS: BP 146/87; PULSE 88; RESP 20; TEMP 97.9; O2SAT 99
[2018-02-25 02:47] VITALS: RESP 20; O2SAT 99
[2018-02-25 02:47] LABS: AUTOMATED NEUTROPHIL # 4.8 TH/MM3 (1.8-7.7); BASOPHIL # 0.1 TH/MM3 (0-0.2); BASOPHIL % 1.5 % (0.0-2.0); EOSINOPHIL # 0.1 TH/MM3 (0-0.4); HEMATOCRIT 37.3 % (35.0-46.0); HEMOGLOBIN 12.8 GM/DL (11.6-15.3); LYMPH % 21.8 % (9.0-44.0); LYMPHOCYTE # 1.5 TH/MM3 (1.0-4.8); MEAN CELL VOLUME 86.5 FL (80.0-100.0); MEAN CORPUSCULAR HEMOGLOBIN 29.7 PG (27.0-34.0); MEAN CORPUSCULAR HGB CONC 34.3 % (32.0-36.0); MEAN PLATELET VOLUME 9.3 FL (7.0-11.0); MONO % 7.5 % (0.0-8.0); MONOCYTE # 0.5 TH/MM3 (0-0.9); NEUT % 68.2 % (16.0-70.0); PLATELET COUNT 216 TH/MM3 (150-450); RED BLOOD COUNT 4.31 MIL/MM3 (4.00-5.30); RED CELL DISTRIBUTION WIDTH 14.3 % (11.6-17.2)
[2018-02-25] MEDS ORDERED: FAMOTIDINE 20 MG/2 ML VIAL IV PUSH SCH (03:00)
[2018-02-25 03:01] LABS: CHLORIDE 107 MEQ/L (98-107); SODIUM (NA) 139 MEQ/L (136-145)
[2018-02-25 03:05] LABS: ALBUMIN 3.1 GM/DL (3.4-5.0); BICARBONATE 27.9 MEQ/L (21.0-32.0); CALCIUM 8.7 MG/DL (8.5-10.1); GLUCOSE,RANDOM 115 MG/DL (74-106)
[2018-02-25 03:06] LABS: BLOOD UREA NITROGEN 11 MG/DL (7-18)
[2018-02-25 03:08] LABS: ALT (GPT) 17 U/L (10-53); AST (GOT) 18 U/L (15-37); GLOMERULAR FILTRATION RATE 62 ML/MIN (>89)
[2018-02-25 03:09] LABS: BILIRUBIN, URINE NEG (NEG); BLOOD, URINE NEG (NEG); GLUCOSE,URINE NEG (NEG); KETONE, URINE NEG (NEG); NITRITE,URINE NEG (NEG); URINE COLOR YELLOW (YELLW/STRAW); URINE LEUKOCYTE ESTERASE NEG (NEG)
[2018-02-25 03:10] LABS: TOTAL BILIRUBIN ADULT 0.5 MG/DL (0.2-1.0); TOTAL PROTEIN 8.5 GM/DL (6.4-8.2)
[2018-02-25 03:11] LABS: ALKALINE PHOSPHATASE 68 U/L (45-117)
[2018-02-25] MEDS ORDERED: ONDANSETRON ODT 4 MG TAB PO ONE (03:15)
[2018-02-25] MEDS ORDERED: LIDOCAINE VISCOUS 2% SOLN 15 ML UDC SWISH-SPIT ONE (03:15)
[2018-02-25] MEDS ORDERED: ALUMINUM/MAGNESIUM/SIMETH 30 ML CUP PO ONE (03:15)
[2018-02-25] MEDS ORDERED: SODIUM CHLOR 0.9% 1000 ML INJ 1,000 ML IV ONE (03:15)
[2018-02-25 03:18] VITALS: BP 115/74; PULSE 89; RESP 20; O2SAT 99
[2018-02-25 03:18] LABS: SQUAMOUS EPITHELIAL CELL URINE 0-5 /hpf (0-5); WBC, URINE 0-2 /hpf (0-5)
--- NOTE | 2018-02-25 04:24 | PD ---
HPI Chief Complaint: GI Complaint Time Seen by Provider: 02:27 Travel History International Travel<30 days: No Contact w/Intl Traveler<30days: No Traveled to known affect area: No History of Present Illness HPI Patient has severe burning epigastric pain for the last 2 hours it is localized to epigastrium. It is constant. It is severe it is burning it is 10 out of 10. She is writhing in the stretcher. She did not take anything for the pain she did eat some very spicy jerk chicken Abhi food out of the restaurant she says there was a stool she thinks it could be the reason she is having severe pain. Patient has no history of gastritis no history of gallbladder disease no history of pancreatitis she has not seen another doctor for this it started just prior to arrival 2 hours after eating the Abhi stew denies vomiting diarrhea. She does have nausea from being in so much pain PFSH Past Medical History Anemia: Yes Asthma: No Autoimmune Disease: Yes (HIV + ) Anxiety: Yes Depression: Yes Heart Rhythm Problems: Yes (SINUS TACH ) Cancer: No Cardiovascular Problems: Yes High Cholesterol: No Chemotherapy: No Chest Pain: No COPD: No Diabetes: No Diminished Hearing: No Endocrine: No Gastrointestinal Disorders: Yes Genitourinary: No Hypertension: No Immune Disorder: Yes (HIV/AIDS/MAC) Implanted Vascular Access Dvce: No Musculoskeletal: Yes Neurologic: Yes Psychiatric: Yes Reproductive: No Respiratory: Yes (occ bronchitis) Immunizations Current: Yes Radiation Therapy: No Sleep Apnea: No Thyroid Disease: No PNEUMOCCOCAL Vaccine (Year): 2010 ?: Unknown LMP: 02/11/2018 Menopausal: No : 2 Para: 2 Past Surgical History Abdominal Surgery: Yes (BIOPSY OF LYMPH NODES- PEG TUBE PLACEMENT) AICD: No Appendectomy: No Arteriovenous Shunt: No Section: Yes (X 2) Cholecystectomy: No Gynecologic Surgery: Yes ((2) C-Sections) Joint Replacement: No Pacemaker: No Other Surgery: Yes (lymph nodes biopsy in abd) Social History Alcohol Use: No Tobacco Use: Yes (quit 2 weeks) Substance Use: No Allergies-Medications (Allergen,Severity, Reaction): Coded Allergies: albuterol (Verified Allergy, Severe, 02/25/18) sulfamethoxazole (Verified Allergy, Severe, Shortness of Breath, 02/25/18) trimethoprim (Verified Allergy, Severe, Shortness of Breath, 02/25/18) Reported Meds & Prescriptions Reported Meds & Active Scripts Active Arzmlezs-Kdxysnjxf-Irvqbihzhbq Liq 200-200-20 Mg/5 Ml Susp 20 Ml PO QID Take between meals or as directed. Shake well. Do not exceed 120 mL/24 hrs. Lidocaine Viscous 2% Liq 2 % Liq 5 Ml PO Q4-6H Pepcid (Famotidine) 20 Mg Tab 20 Mg PO BID Zofran Odt (Ondansetron Odt) 4 Mg Tab 4 Mg SL Q6HR PRN Review of Systems Except as stated in HPI: all other systems reviewed are Neg Gastrointestinal: Positive: Nausea, Abdominal Pain Physical Exam Narrative GENERAL: Patient writhing in pain holding her epigastrium crying 10 out of 10 pain reported SKIN: Warm and dry. HEAD: Atraumatic. Normocephalic. EYES: Pupils equal and round. No scleral icterus. No injection or drainage. ENT: No nasal bleeding or discharge. Mucous membranes pink and moist. NECK: Trachea midline. No JVD. CARDIOVASCULAR: Regular rate and rhythm. RESPIRATORY: No accessory muscle use. Clear to auscultation. Breath sounds equal bilaterally. GASTROINTESTINAL: Abdomen epigastric severe pain with palpation MUSCULOSKELETAL: Extremities without clubbing, cyanosis, or edema. No obvious deformities. NEUROLOGICAL: Awake and alert. No obvious cranial nerve deficits. Motor grossly within normal limits. Five out of 5 muscle strength in the arms and legs. Normal speech. PSYCHIATRIC: Appropriate mood and affect; insight and judgment normal. Data Data Last Documented VS Vital Signs Date Time Temp Pulse Resp B/P (MAP) Pulse Ox O2 Delivery O2 Flow Rate FiO2 02/25/18 03:18 89 20 115/74 (88) 99 Room Air 02/25/18 02:27 97.9 Orders Orders Complete Blood Count With Diff (02/25/18 02:27) Comprehensive Metabolic Panel (02/25/18 02:27) Urinalysis - C+S If Indicated (02/25/18 02:27) Ed Urine Pregnancytest Poc (02/25/18 02:27) Iv Access Insert/Monitor (02/25/18 02:27) Oxygen Administration (02/25/18 02:27) Oximetry (02/25/18 02:27) Lipase (02/25/18 02:27) Famotidine Inj (Pepcid Inj) (02/25/18 03:00) Sodium Chlor 0.9% 1000 Ml Inj (Ns 1000 M (02/25/18 03:15) Ondansetron Odt (Zofran Odt) (02/25/18 03:15) Al-Mag Hy-Si 40-40-4 Mg/Ml Liq (Mag-Al P (02/25/18 03:15) Lidocaine 2% Viscous (Xylocaine 2% Visco (02/25/18 03:15) Ed Discharge Order (02/25/18 04:21) Labs Laboratory Tests Test 02/25/18 02:34 02/25/18 03:03 White Blood Count 7.0 TH/MM3 Red Blood Count 4.31 MIL/MM3 Hemoglobin 12.8 GM/DL Hematocrit 37.3 % Mean Corpuscular Volume 86.5 FL Mean Corpuscular Hemoglobin 29.7 PG Mean Corpuscular Hemoglobin Concent 34.3 % Red Cell Distribution Width 14.3 % Platelet Count 216 TH/MM3 Mean Platelet Volume 9.3 FL Neutrophils (%) (Auto) 68.2 % Lymphocytes (%) (Auto) 21.8 % Monocytes (%) (Auto) 7.5 % Eosinophils (%) (Auto) 1.0 % Basophils (%) (Auto) 1.5 % Neutrophils # (Auto) 4.8 TH/MM3 Lymphocytes # (Auto) 1.5 TH/MM3 Monocytes # (Auto) 0.5 TH/MM3 Eosinophils # (Auto) 0.1 TH/MM3 Basophils # (Auto) 0.1 TH/MM3 CBC Comment DIFF FINAL Differential Comment Blood Urea Nitrogen 11 MG/DL Creatinine 1.20 MG/DL Random Glucose 115 MG/DL Total Protein 8.5 GM/DL Albumin 3.1 GM/DL Calcium Level 8.7 MG/DL Alkaline Phosphatase 68 U/L Aspartate Amino Transf (AST/SGOT) 18 U/L Alanine Aminotransferase (ALT/SGPT) 17 U/L Total Bilirubin 0.5 MG/DL Sodium Level 139 MEQ/L Potassium Level 3.7 MEQ/L Chloride Level 107 MEQ/L Carbon Dioxide Level 27.9 MEQ/L Anion Gap 4 MEQ/L Estimat Glomerular Filtration Rate 62 ML/MIN Lipase 140 U/L Urine Color YELLOW Urine Turbidity CLEAR Urine pH 6.0 Urine Specific [place] 1.020 Urine Protein TRACE mg/dL Urine Glucose (UA) NEG mg/dL Urine Ketones NEG mg/dL Urine Occult Blood NEG Urine Nitrite NEG Urine Bilirubin NEG Urine Urobilinogen 0.2 MG/DL Urine Leukocyte Esterase NEG Urine WBC 0-2 /hpf Urine Squamous Epithelial Cells 0-5 /hpf Microscopic Urinalysis Comment CULT NOT INDICATED MDM Medical Decision Making Medical Screen Exam Complete: Yes Emergency Medical Condition: Yes Medical Record Reviewed: Yes Differential Diagnosis Differential diagnosis is epigastric gastritis pain versus GERD reflux versus food poisoning versus pancreatitis versus gallbladder disease Narrative Course Pepcid IV as well as Maalox viscous lidocaine has alleviated the patient's pain completely and I feel this is gastritis secondary to the food she ate as her pain is completely cured only with antacids I do not feel is any need for further imaging I do not feel there is any need for any pain medication she got a liter of fluid feels completely better Zofran p.o. was given as well discharge gastritis with scripts for Zofran as well as viscous lidocaine Maalox Diagnosis Primary Impression: Gastritis Qualified Codes: K29.70 - Gastritis, unspecified, without bleeding Patient Instructions: Gastritis (ED), General Instructions Scripts Gbjtxuqw-Oyhkdwbfd-Horclaimyol Liq (Dwjchnsr-Idaavzfsj-Xnzpggotvbl Liq) 200-200- 20 Mg/5 Ml Susp 20 ML PO QID for Indigestion, #200 ML 0 Refills Take between meals or as directed. Shake well. Do not exceed 120 mL/24 hrs. Prov: Kayden Torres MD 02/25/18 Lidocaine Viscous 2% Liq (Lidocaine Viscous 2% Liq) 2 % Liq 5 ML PO Q4-6H, #100 ML Prov: Kayden Torres MD 02/25/18 Famotidine (Pepcid) 20 Mg Tab 20 MG PO BID, #20 TAB 0 Refills Prov: Kayden Torres MD 02/25/18 Ondansetron Odt (Zofran Odt) 4 Mg Tab 4 MG SL Q6HR Y for Nausea/Vomiting, #12 TAB 0 Refills Prov: Kayden Torres MD 02/25/18 Disposition: 01 DISCHARGE HOME Condition: Good Kayden Torres MD February 25, 2018 04:24
[2018-02-25] MEDS ORDERED: ALUMSUS2 PO (04:28)
[2018-02-25] MEDS ORDERED: ZOFR4TAB3 SL (04:28)
[2018-02-25] MEDS ORDERED: LIDO2SOL11 PO (04:28)
[2018-02-25] MEDS ORDERED: FAMO1TAB37 PO (04:28)
[2018-02-25 04:50] VITALS: BP 132/77
== END 2018-02-25 04:52 | disposition home or self-care (01) ==
LOC: PHED 02:12
DX: K29.70 Gastritis, unspecified, without bleeding (principal); F41.9 Anxiety disorder, unspecified; F32.9 Major depressive disorder, single episode, unspecified; Z21 Asymptomatic human immunodeficiency virus [HIV] infection status; Z87.891 Personal history of nicotine dependence
CPT/HCPCS: 80053; 81001; 83690; 84703; 85025; 96361; 96374; 99284; J7030